=== PATIENT | male | born 1950 | race Caucasian/White ===

== ENCOUNTER 2020-12-21 10:53 | Outpatient (CLI) | payer MEDICARE, BC ==
[2020-12-21 13:00] LABS: BASOPHILS % (AUTO) 0.6 % (0.0-2.0); EOSINOPHILS % (AUTO) 2.1 % (0.0-6.0); HEMATOCRIT 44 % (39-51); HEMOGLOBIN 14.7 g/dL (13.5-17.5); LYMPHOCYTES # (AUTO) 0.8 /CMM (0.8-4.8); LYMPHOCYTES % (AUTO) 20.1 % (20.0-44.0); MEAN CORPUSCULAR HGB CONC 33 g/dl (31.0-36.0); MEAN CORPUSCULAR VOLUME 87 fL (80-96); MONOCYTES # (AUTO) 0.3 /CMM (0.1-1.30); MONOCYTES % (AUTO) 6.5 % (2.0-12.0); NEUTROPHILS # (AUTO) 2.8 /CMM (1.8-8.9); NEUTROPHILS % (AUTO) 70.7 % (43.0-81.0); PLATELET COUNT (AUTO) 125 /CMM (150-450); RED BLOOD CELL COUNT(AUTO) 5.07 MIL/uL (4.5-6.0); WHITE BLOOD COUNT (AUTO) 3.9 K/uL (4.3-11.0)
[2020-12-21 13:15] LABS: URINE TOTAL PROTEIN 17.9 mg/dL (0-11.9)
[2020-12-21 13:18] LABS: ALANINE AMINOTRANSFERASE 39 U/L (12-78); ALBUMIN 3.8 g/dL (3.4-5.0); ALKALINE PHOSPHATASE 74 U/L (46-116); ASPARTATE AMINOTRANSFERASE 33 U/L (15-37); BILIRUBIN,TOTAL 0.8 mg/dL (0.2-1.0); CALCIUM, SERUM 8.8 mg/dL (8.5-10.1); CARBON DIOXIDE 28 mmol/L (21-32); CHLORIDE 103 mmol/L (98-107); CREATININE 1.2 mg/dL (0.6-1.3); GLUCOSE 91 mg/dL (74-106); MAGNESIUM 2.3 mg/dL (1.8-2.4); PHOSPHORUS 3.4 mg/dL (2.5-4.9); SODIUM SERUM 140 mmol/L (136-145); UREA NITROGEN, BLOOD 27 mg/dL (7-18)
[2020-12-21 13:25] LABS: BILIRUBIN,URINE NEGATIVE (NEGATIVE); COLOR,URINE YELLOW (YELLOW); LEUKOCYTE ESTERASE ,URINE NEGATIVE (NEGATIVE); NITRITE, URINE NEGATIVE (NEGATIVE); PH,URINE 7.5 (5.0-8.0); PROTEIN,URINE NEGATIVE (NEGATIVE); UGLUCOSE NEGATIVE (NEGATIVE)
[2020-12-21 13:28] LABS: CHOLESTEROL 137 mg/dL (<200); FREE T4 (FREE THYROXINE) 0.98 ng/dL (0.76-1.46); HDL CHOLESTEROL 36 mg/dL (40-60); LDL 68 mg/dL (0-99); THYROID STIMULATING HORMONE 6.029 uIU/mL (0.358-3.74); TRIGLYCERIDES 204 mg/dL (30-150)
[2020-12-21 13:32] LABS: C-REACTIVE PROTEIN < 0.2 mg/dL (0.0-0.9)
== END 2020-12-21 23:59 | disposition home or self-care (01) ==
LOC: MSC 10:53
PROVIDERS: ATTEND Internal Medicine
DX: M53.3 Sacrococcygeal disorders, not elsewhere classified (principal); M25.522 Pain in left elbow; G57.90 Unspecified mononeuropathy of unspecified lower limb; E80.7 Disorder of bilirubin metabolism, unspecified; N40.0 Benign prostatic hyperplasia without lower urinary tract symptoms; E03.9 Hypothyroidism, unspecified; R03.0 Elevated blood-pressure reading, without diagnosis of hypertension; E55.9 Vitamin D deficiency, unspecified; N52.9 Male erectile dysfunction, unspecified; I78.0 Hereditary hemorrhagic telangiectasia; Z79.899 Other long term (current) drug therapy
CPT/HCPCS: 36415; 80053; 80061; 81003; 82043; 82570; 82607; 82746; 83036; 83735; 84100; 84155; 84439; 84443; 85025; 85652; 86140; G0463

== ENCOUNTER 2020-12-23 11:30 | Outpatient (CLI) | payer MEDICARE, BC | END 2020-12-23 23:59 | disposition home or self-care (01) | LOC: MSC 11:30 | PROVIDERS: ATTEND Internal Medicine | DX: G57.90 Unspecified mononeuropathy of unspecified lower limb (principal); M53.3 Sacrococcygeal disorders, not elsewhere classified; M25.522 Pain in left elbow; D69.6 Thrombocytopenia, unspecified; D72.819 Decreased white blood cell count, unspecified; E03.9 Hypothyroidism, unspecified; N40.0 Benign prostatic hyperplasia without lower urinary tract symptoms; R03.0 Elevated blood-pressure reading, without diagnosis of hypertension; E29.1 Testicular hypofunction; E55.9 Vitamin D deficiency, unspecified; N52.9 Male erectile dysfunction, unspecified; I78.0 Hereditary hemorrhagic telangiectasia; Z79.899 Other long term (current) drug therapy ==

== ENCOUNTER 2020-12-31 10:00 | Outpatient (CLI) | payer MEDICARE, BC | END 2020-12-31 23:59 | disposition home or self-care (01) | LOC: WOU 10:00 | PROVIDERS: ATTEND Podiatrist Foot & Ankle Surgery | DX: G90.09 Other idiopathic peripheral autonomic neuropathy (principal); B35.3 Tinea pedis; B35.1 Tinea unguium; R60.0 Localized edema | CPT/HCPCS: G0463 ==

== ENCOUNTER → 2021-01-07 | Outpatient (CLI) | payer MEDICARE, BC | END | disposition home or self-care (01) | LOC: MSC 14:30 | PROVIDERS: ATTEND Internal Medicine | DX: M53.3 Sacrococcygeal disorders, not elsewhere classified (principal); M25.522 Pain in left elbow; G57.90 Unspecified mononeuropathy of unspecified lower limb; D72.819 Decreased white blood cell count, unspecified; N40.0 Benign prostatic hyperplasia without lower urinary tract symptoms; R03.0 Elevated blood-pressure reading, without diagnosis of hypertension; E29.1 Testicular hypofunction; E55.9 Vitamin D deficiency, unspecified; N52.9 Male erectile dysfunction, unspecified; Z79.899 Other long term (current) drug therapy ==

== ENCOUNTER 2021-05-04 15:35 | Outpatient (CLI) | payer MEDICARE, BC ==
[2021-05-04 16:00] LABS: BASOPHILS % (AUTO) 0.9 % (0.0-2.0); EOSINOPHILS % (AUTO) 1.3 % (0.0-6.0); HEMATOCRIT 41 % (39-51); LYMPHOCYTES # (AUTO) 0.8 K/uL (0.8-4.8); LYMPHOCYTES % (AUTO) 17.2 % (20.0-44.0); MEAN CORPUSCULAR HGB CONC 34 g/dl (31.0-36.0); MEAN CORPUSCULAR VOLUME 88 fL (80-96); MONOCYTES # (AUTO) 0.5 K/uL (0.1-1.30); MONOCYTES % (AUTO) 9.8 % (2.0-12.0); NEUTROPHILS # (AUTO) 3.5 K/uL (1.8-8.9); NEUTROPHILS % (AUTO) 70.8 % (43.0-81.0); PLATELET COUNT (AUTO) 136 K/uL (150-450); RED BLOOD CELL COUNT(AUTO) 4.66 MIL/uL (4.5-6.0); WHITE BLOOD COUNT (AUTO) 4.9 K/uL (4.3-11.0)
[2021-05-04 16:09] LABS: BILIRUBIN,URINE NEGATIVE (NEGATIVE); COLOR,URINE YELLOW (YELLOW); LEUKOCYTE ESTERASE ,URINE NEGATIVE (NEGATIVE); NITRITE, URINE NEGATIVE (NEGATIVE); PROTEIN,URINE NEGATIVE (NEGATIVE); UGLUCOSE NEGATIVE (NEGATIVE); UROBILINOGEN,URINE 0.2 EU/dL (0.2)
[2021-05-04 16:14] LABS: MAGNESIUM 2.2 mg/dL (1.8-2.4); PHOSPHORUS 4.1 mg/dL (2.5-4.9)
== END 2021-05-04 23:59 | disposition home or self-care (01) ==
LOC: LAB 15:35
PROVIDERS: ATTEND Internal Medicine
DX: E03.9 Hypothyroidism, unspecified (principal); Z79.899 Other long term (current) drug therapy
CPT/HCPCS: 36415; 83735-TC; 84100-TC; 85025-TC

== ENCOUNTER 2021-10-18 11:15 | Outpatient (CLI) | payer MEDICARE, BC ==
[2021-10-18] MEDS ORDERED: BACI/NEOM/POLY B OINT PKT 1 UDPKT PACKET ONE (12:16)
== END 2021-10-18 23:59 | disposition home or self-care (01) ==
LOC: WOU 11:15
PROVIDERS: ATTEND Podiatrist Foot & Ankle Surgery
DX: S91.114A Laceration without foreign body of right lesser toe(s) without damage to nail, initial encounter (principal); X58.XXXA Exposure to other specified factors, initial encounter; Y92.89 Other specified places as the place of occurrence of the external cause; G90.09 Other idiopathic peripheral autonomic neuropathy; B35.1 Tinea unguium; R60.0 Localized edema
CPT/HCPCS: 87070; 87075; 87077; 87102; G0463

== ENCOUNTER 2021-10-19 09:20 | Outpatient (CLI) | payer MEDICARE, BC ==
[2021-10-19 10:17] LABS: BASOPHILS % (AUTO) 0.5 % (0.0-2.0); EOSINOPHILS % (AUTO) 1.8 % (0.0-6.0); HEMATOCRIT 42 % (39-51); HEMOGLOBIN 14.2 g/dL (13.5-17.5); LYMPHOCYTES # (AUTO) 0.6 K/uL (0.8-4.8); LYMPHOCYTES % (AUTO) 16.5 % (20.0-44.0); MEAN CORPUSCULAR HGB CONC 34 g/dl (31.0-36.0); MEAN CORPUSCULAR VOLUME 88 fL (80-96); MONOCYTES # (AUTO) 0.4 K/uL (0.1-1.30); MONOCYTES % (AUTO) 9.6 % (2.0-12.0); NEUTROPHILS # (AUTO) 2.7 K/uL (1.8-8.9); NEUTROPHILS % (AUTO) 71.6 % (43.0-81.0); PLATELET COUNT (AUTO) 135 K/uL (150-450); RED BLOOD CELL COUNT(AUTO) 4.72 MIL/uL (4.5-6.0); WHITE BLOOD COUNT (AUTO) 3.7 K/uL (4.3-11.0)
== END 2021-10-19 23:59 | disposition home or self-care (01) ==
LOC: RAD 09:20
PROVIDERS: ATTEND Podiatrist Foot & Ankle Surgery
DX: B35.3 Tinea pedis (principal)
CPT/HCPCS: 36415; 85025-TC; 85652-TC; 86140-TC

== ENCOUNTER 2021-10-25 10:30 | Outpatient (CLI) | payer MEDICARE, BC ==
[2021-10-25] MEDS ORDERED: BACI/NEOM/POLY B OINT PKT 1 UDPKT PACKET ONE (11:39)
== END 2021-10-25 23:59 | disposition home or self-care (01) ==
LOC: WOU 10:30
PROVIDERS: ATTEND Podiatrist Foot & Ankle Surgery
DX: S91.114D Laceration without foreign body of right lesser toe(s) without damage to nail, subsequent encounter (principal); X58.XXXD Exposure to other specified factors, subsequent encounter; L03.031 Cellulitis of right toe; B95.61 Methicillin susceptible Staphylococcus aureus infection as the cause of diseases classified elsewhere; R60.0 Localized edema; B35.1 Tinea unguium; B35.3 Tinea pedis
CPT/HCPCS: G0463

== ENCOUNTER 2021-12-29 08:49 | Outpatient (CLI) | payer MEDICARE, BC | END 2021-12-29 23:59 | disposition home or self-care (01) | LOC: MSC 08:49 | PROVIDERS: ATTEND Internal Medicine | DX: Z00.00 Encounter for general adult medical examination without abnormal findings (principal); R03.0 Elevated blood-pressure reading, without diagnosis of hypertension; M53.3 Sacrococcygeal disorders, not elsewhere classified; L60.8 Other nail disorders; M25.522 Pain in left elbow; G57.90 Unspecified mononeuropathy of unspecified lower limb; D72.819 Decreased white blood cell count, unspecified; N40.0 Benign prostatic hyperplasia without lower urinary tract symptoms; E29.1 Testicular hypofunction; E03.9 Hypothyroidism, unspecified; Z79.890 Hormone replacement therapy; E55.9 Vitamin D deficiency, unspecified; I78.1 Nevus, non-neoplastic; N52.9 Male erectile dysfunction, unspecified; Z79.899 Other long term (current) drug therapy ==

== ENCOUNTER 2022-01-03 09:20 | Outpatient (CLI) | payer MEDICARE, BC ==
[2022-01-03 10:50] LABS: BASOPHILS % (AUTO) 0.6 % (0.0-2.0); EOSINOPHILS % (AUTO) 1.9 % (0.0-6.0); HEMATOCRIT 44 % (39-51); LYMPHOCYTES # (AUTO) 0.6 K/uL (0.8-4.8); LYMPHOCYTES % (AUTO) 18.8 % (20.0-44.0); MEAN CORPUSCULAR HGB CONC 34 g/dl (31.0-36.0); MEAN CORPUSCULAR VOLUME 88 fL (80-96); MONOCYTES # (AUTO) 0.3 K/uL (0.1-1.30); MONOCYTES % (AUTO) 10.1 % (2.0-12.0); NEUTROPHILS # (AUTO) 2.2 K/uL (1.8-8.9); NEUTROPHILS % (AUTO) 68.6 % (43.0-81.0); PLATELET COUNT (AUTO) 123 K/uL (150-450); WHITE BLOOD COUNT (AUTO) 3.2 K/uL (4.3-11.0)
[2022-01-03 11:03] LABS: TOTAL IRON BINDING CAPACITY 278 ug/dl (250-450)
[2022-01-03 11:17] LABS: CHOLESTEROL 147 mg/dL (<200); FERRITIN 351 ng/mL (8-388); FREE T4 (FREE THYROXINE) 1.43 ng/dL (0.76-1.46); GAMMA GLUTAMYL TRANSFERASE 31 U/L (5-85); HDL CHOLESTEROL 52 mg/dL (40-60); LDL 82 mg/dL (0-99); THYROID STIMULATING HORMONE 0.367 uIU/mL (0.358-3.74); TRIGLYCERIDES 80 mg/dL (30-150)
[2022-01-03 11:19] LABS: C-REACTIVE PROTEIN < 0.2 mg/dL (0.0-0.9)
[2022-01-03 11:24] LABS: URINE TOTAL PROTEIN 0.9 mg/dL (0-11.9)
[2022-01-03 11:29] LABS: ALANINE AMINOTRANSFERASE 37 U/L (12-78); ALBUMIN 4.1 g/dL (3.4-5.0); ALKALINE PHOSPHATASE 58 U/L (46-116); ASPARTATE AMINOTRANSFERASE 29 U/L (15-37); BILIRUBIN,TOTAL 1.3 mg/dL (0.2-1.0); CARBON DIOXIDE 30 mmol/L (21-32); CHLORIDE 102 mmol/L (98-107); CREATININE 1.1 mg/dL (0.6-1.3); GLUCOSE 92 mg/dL (74-106); MAGNESIUM 2.4 mg/dL (1.8-2.4); PHOSPHORUS 3.1 mg/dL (2.5-4.9); POTASSIUM 4.5 mmol/L (3.5-5.1); SODIUM SERUM 139 mmol/L (136-145); TOTAL PROTEIN, SERUM 7.1 g/dL (6.4-8.2); UREA NITROGEN, BLOOD 25 mg/dL (7-18)
[2022-01-03 12:12] LABS: BILIRUBIN,URINE NEGATIVE (NEGATIVE); COLOR,URINE YELLOW (YELLOW); LEUKOCYTE ESTERASE ,URINE NEGATIVE (NEGATIVE); NITRITE, URINE NEGATIVE (NEGATIVE); PROTEIN,URINE NEGATIVE (NEGATIVE); UGLUCOSE NEGATIVE (NEGATIVE); UROBILINOGEN,URINE 0.2 EU/dL (0.2)
== END 2022-01-03 23:59 | disposition home or self-care (01) ==
LOC: RAD 09:20
PROVIDERS: ATTEND Internal Medicine
DX: K76.89 Other specified diseases of liver (principal); Z00.00 Encounter for general adult medical examination without abnormal findings; M79.671 Pain in right foot
CPT/HCPCS: 36415; 73630-TC; 76705-TC; 80053-TC; 80061-TC; 82306; 82607-TC; 82728-TC; 82977-TC; 83550-TC; 83735-TC; 83970; 84100-TC; 84155-TC; 84439-TC; 84443-TC; 85025-TC; 85652-TC; 86140-TC

== ENCOUNTER 2022-01-13 14:00 | Outpatient (CLI) | payer MEDICARE, BC | END 2022-01-13 23:59 | disposition home or self-care (01) | LOC: MSC 14:00 | PROVIDERS: ATTEND Internal Medicine | DX: I10 Essential (primary) hypertension (principal); D61.818 Other pancytopenia; D69.6 Thrombocytopenia, unspecified; M53.3 Sacrococcygeal disorders, not elsewhere classified; L81.9 Disorder of pigmentation, unspecified; L60.8 Other nail disorders; M25.522 Pain in left elbow; G57.90 Unspecified mononeuropathy of unspecified lower limb; N40.0 Benign prostatic hyperplasia without lower urinary tract symptoms; E29.1 Testicular hypofunction; E03.9 Hypothyroidism, unspecified; Z79.890 Hormone replacement therapy; E55.9 Vitamin D deficiency, unspecified; I78.1 Nevus, non-neoplastic; N52.9 Male erectile dysfunction, unspecified; Z79.899 Other long term (current) drug therapy ==

== ENCOUNTER → 2022-02-22 | Outpatient (CLI) | payer MEDICARE, BC | END | disposition home or self-care (01) | LOC: MSC 14:30 | PROVIDERS: ATTEND Internal Medicine | DX: I10 Essential (primary) hypertension (principal); D61.818 Other pancytopenia; D69.6 Thrombocytopenia, unspecified; M53.3 Sacrococcygeal disorders, not elsewhere classified; L81.9 Disorder of pigmentation, unspecified; L60.8 Other nail disorders; M25.522 Pain in left elbow; G57.90 Unspecified mononeuropathy of unspecified lower limb; N40.0 Benign prostatic hyperplasia without lower urinary tract symptoms; E29.1 Testicular hypofunction; N52.9 Male erectile dysfunction, unspecified; E03.9 Hypothyroidism, unspecified; Z79.890 Hormone replacement therapy; E55.9 Vitamin D deficiency, unspecified; I78.1 Nevus, non-neoplastic; Z79.899 Other long term (current) drug therapy ==

== ENCOUNTER 2022-03-08 08:44 | Outpatient (CLI) | payer MEDICARE, BC ==
[2022-03-08 09:50] LABS: CALCIUM, SERUM 8.8 mg/dL (8.5-10.1); CARBON DIOXIDE 31 mmol/L (21-32); CHLORIDE 105 mmol/L (98-107); CREATININE 1.2 mg/dL (0.6-1.3); GLUCOSE 105 mg/dL (74-106); MAGNESIUM 2.1 mg/dL (1.8-2.4); PHOSPHORUS 3.5 mg/dL (2.5-4.9); POTASSIUM 4.6 mmol/L (3.5-5.1); SODIUM SERUM 140 mmol/L (136-145); UREA NITROGEN, BLOOD 21 mg/dL (7-18)
== END 2022-03-08 23:59 | disposition home or self-care (01) ==
LOC: LAB 08:44
PROVIDERS: ATTEND Internal Medicine
DX: N40.0 Benign prostatic hyperplasia without lower urinary tract symptoms (principal); E03.9 Hypothyroidism, unspecified; E29.1 Testicular hypofunction; R03.0 Elevated blood-pressure reading, without diagnosis of hypertension
CPT/HCPCS: 36415; 80048-TC; 83735-TC; 84100-TC

== ENCOUNTER 2022-03-28 09:45 | Outpatient (CLI) | payer MEDICARE, BC | END 2022-03-28 23:59 | disposition home or self-care (01) | LOC: MSC 09:45 | PROVIDERS: ATTEND Internal Medicine | DX: I10 Essential (primary) hypertension (principal); D61.818 Other pancytopenia; D69.6 Thrombocytopenia, unspecified; M53.3 Sacrococcygeal disorders, not elsewhere classified; L81.9 Disorder of pigmentation, unspecified; L60.8 Other nail disorders; M25.522 Pain in left elbow; G57.90 Unspecified mononeuropathy of unspecified lower limb; N40.0 Benign prostatic hyperplasia without lower urinary tract symptoms; E29.1 Testicular hypofunction; N52.9 Male erectile dysfunction, unspecified; E03.9 Hypothyroidism, unspecified; Z79.890 Hormone replacement therapy; E55.9 Vitamin D deficiency, unspecified; I78.1 Nevus, non-neoplastic ==

== ENCOUNTER 2022-07-17 15:02 | Outpatient (CLI) | payer MEDICARE, BC ==
[2022-07-17 15:55] LABS: BILIRUBIN,URINE NEGATIVE (NEGATIVE); COLOR,URINE YELLOW (YELLOW); LEUKOCYTE ESTERASE ,URINE NEGATIVE (NEGATIVE); NITRITE, URINE NEGATIVE (NEGATIVE); PH,URINE 6.5 (5.0-8.0); PROTEIN,URINE NEGATIVE (NEGATIVE); UGLUCOSE NEGATIVE (NEGATIVE); UROBILINOGEN,URINE 0.2 EU/dL (0.2)
[2022-07-17 16:00] LABS: BACTERIA,URINE Rare /HPF (None Seen); RBC,URINE TOO NUMEROUS TO COUN /HPF (0-2); SQUAMOUS EPITHELIAL CELL,UR Few /HPF (None Seen)
[2022-07-17 16:04] LABS: BASOPHILS % (AUTO) 0.5 % (0.0-2.0); EOSINOPHILS % (AUTO) 1.8 % (0.0-6.0); HEMATOCRIT 42 % (39-51); HEMOGLOBIN 14.2 g/dL (13.5-17.5); LYMPHOCYTES # (AUTO) 0.9 K/uL (0.8-4.8); LYMPHOCYTES % (AUTO) 19.3 % (20.0-44.0); MEAN CORPUSCULAR HGB CONC 34 g/dl (31.0-36.0); MEAN CORPUSCULAR VOLUME 85 fL (80-96); MONOCYTES # (AUTO) 0.6 K/uL (0.1-1.30); MONOCYTES % (AUTO) 12.5 % (2.0-12.0); NEUTROPHILS # (AUTO) 3.1 K/uL (1.8-8.9); NEUTROPHILS % (AUTO) 65.9 % (43.0-81.0); PLATELET COUNT (AUTO) 134 K/uL (150-450); RED BLOOD CELL COUNT(AUTO) 4.94 MIL/uL (4.5-6.0); WHITE BLOOD COUNT (AUTO) 4.7 K/uL (4.3-11.0)
== END 2022-07-17 23:59 | disposition home or self-care (01) ==
LOC: LAB 15:02
PROVIDERS: ATTEND Internal Medicine
DX: Z01.818 Encounter for other preprocedural examination (principal); R97.20 Elevated prostate specific antigen [PSA]
CPT/HCPCS: 36415; 80048-TC; 81001; 85025-TC; 85730-TC; 87086-TC

== ENCOUNTER → 2022-07-20 | Outpatient (CLI) | payer MEDICARE, BC | END | disposition home or self-care (01) | LOC: MSC 10:36 | PROVIDERS: ATTEND Internal Medicine | DX: Z01.818 Encounter for other preprocedural examination (principal); N40.0 Benign prostatic hyperplasia without lower urinary tract symptoms; R05.3 Chronic cough; Z80.1 Family history of malignant neoplasm of trachea, bronchus and lung; I78.1 Nevus, non-neoplastic; R22.42 Localized swelling, mass and lump, left lower limb; I10 Essential (primary) hypertension; D69.6 Thrombocytopenia, unspecified; M53.3 Sacrococcygeal disorders, not elsewhere classified; L81.9 Disorder of pigmentation, unspecified; M25.522 Pain in left elbow; G57.90 Unspecified mononeuropathy of unspecified lower limb; E29.1 Testicular hypofunction; N52.9 Male erectile dysfunction, unspecified; E03.9 Hypothyroidism, unspecified; Z79.890 Hormone replacement therapy; E55.9 Vitamin D deficiency, unspecified | CPT/HCPCS: 71045; G0463 ==

== ENCOUNTER 2022-07-25 10:30 | Outpatient (CLI) | payer MEDICARE, BC | END 2022-07-25 23:59 | disposition home or self-care (01) | LOC: MSC 10:30 | PROVIDERS: ATTEND Internal Medicine | DX: R05.3 Chronic cough (principal); Z80.1 Family history of malignant neoplasm of trachea, bronchus and lung; G57.90 Unspecified mononeuropathy of unspecified lower limb; R22.42 Localized swelling, mass and lump, left lower limb; N40.0 Benign prostatic hyperplasia without lower urinary tract symptoms; I78.1 Nevus, non-neoplastic; I10 Essential (primary) hypertension; D69.6 Thrombocytopenia, unspecified; M53.3 Sacrococcygeal disorders, not elsewhere classified; L81.9 Disorder of pigmentation, unspecified; M25.522 Pain in left elbow; E29.1 Testicular hypofunction; N52.9 Male erectile dysfunction, unspecified; E03.9 Hypothyroidism, unspecified; Z79.890 Hormone replacement therapy; E55.9 Vitamin D deficiency, unspecified ==

== ENCOUNTER 2022-08-08 09:00 | Outpatient (CLI) | payer MEDICARE, BC | END 2022-08-08 23:59 | disposition home or self-care (01) | LOC: MSC 09:00 | PROVIDERS: ATTEND Internal Medicine | DX: R22.42 Localized swelling, mass and lump, left lower limb (principal); M53.3 Sacrococcygeal disorders, not elsewhere classified; G57.90 Unspecified mononeuropathy of unspecified lower limb; R05.9 Cough, unspecified; R05.3 Chronic cough; Z80.1 Family history of malignant neoplasm of trachea, bronchus and lung; I78.1 Nevus, non-neoplastic; I10 Essential (primary) hypertension; D69.6 Thrombocytopenia, unspecified; M25.522 Pain in left elbow; N40.0 Benign prostatic hyperplasia without lower urinary tract symptoms; E29.1 Testicular hypofunction; N52.9 Male erectile dysfunction, unspecified; E03.9 Hypothyroidism, unspecified; Z79.890 Hormone replacement therapy; E55.9 Vitamin D deficiency, unspecified ==

== ENCOUNTER 2022-08-14 11:10 | Outpatient (CLI) | payer MEDICARE, BC | END 2022-08-14 23:59 | disposition home or self-care (01) | LOC: CT 11:10 | PROVIDERS: ATTEND Internal Medicine | DX: R05.9 Cough, unspecified (principal); M51.34 Other intervertebral disc degeneration, thoracic region; I25.10 Atherosclerotic heart disease of native coronary artery without angina pectoris; M47.814 Spondylosis without myelopathy or radiculopathy, thoracic region; M48.04 Spinal stenosis, thoracic region | CPT/HCPCS: 71250-TC ==

== ENCOUNTER → 2022-08-22 | Outpatient (CLI) | payer MEDICARE, BC | END | disposition home or self-care (01) | LOC: MSC 11:45 | PROVIDERS: ATTEND Internal Medicine | DX: R05.3 Chronic cough (principal); Z80.1 Family history of malignant neoplasm of trachea, bronchus and lung; R22.42 Localized swelling, mass and lump, left lower limb; G57.90 Unspecified mononeuropathy of unspecified lower limb; L98.9 Disorder of the skin and subcutaneous tissue, unspecified; I10 Essential (primary) hypertension; D69.6 Thrombocytopenia, unspecified; M53.3 Sacrococcygeal disorders, not elsewhere classified; M25.522 Pain in left elbow; N40.0 Benign prostatic hyperplasia without lower urinary tract symptoms; E29.1 Testicular hypofunction; N52.9 Male erectile dysfunction, unspecified; E03.9 Hypothyroidism, unspecified; Z79.890 Hormone replacement therapy; E55.9 Vitamin D deficiency, unspecified ==

== ENCOUNTER → 2022-09-21 | Outpatient (CLI) | payer MEDICARE, BC | END | disposition home or self-care (01) | LOC: MSC 15:30 | PROVIDERS: ATTEND Internal Medicine | DX: I10 Essential (primary) hypertension (principal); Z79.899 Other long term (current) drug therapy; R05.3 Chronic cough; Z80.1 Family history of malignant neoplasm of trachea, bronchus and lung; R22.42 Localized swelling, mass and lump, left lower limb; L98.9 Disorder of the skin and subcutaneous tissue, unspecified; G57.90 Unspecified mononeuropathy of unspecified lower limb; D69.6 Thrombocytopenia, unspecified; M53.3 Sacrococcygeal disorders, not elsewhere classified; M25.522 Pain in left elbow; N40.0 Benign prostatic hyperplasia without lower urinary tract symptoms; E29.1 Testicular hypofunction; N52.9 Male erectile dysfunction, unspecified; E03.9 Hypothyroidism, unspecified; Z79.890 Hormone replacement therapy; E55.9 Vitamin D deficiency, unspecified ==

== ENCOUNTER 2022-10-12 14:00 | Outpatient (CLI) | payer MEDICARE, BC | END 2022-10-12 23:59 | disposition home or self-care (01) | LOC: MSC 14:00 | PROVIDERS: ATTEND Internal Medicine | DX: R60.0 Localized edema (principal); I87.2 Venous insufficiency (chronic) (peripheral); G57.90 Unspecified mononeuropathy of unspecified lower limb; I10 Essential (primary) hypertension; R05.3 Chronic cough; Z80.1 Family history of malignant neoplasm of trachea, bronchus and lung; L98.9 Disorder of the skin and subcutaneous tissue, unspecified; I78.1 Nevus, non-neoplastic; D69.6 Thrombocytopenia, unspecified; M53.3 Sacrococcygeal disorders, not elsewhere classified; M25.522 Pain in left elbow; N40.0 Benign prostatic hyperplasia without lower urinary tract symptoms; E29.1 Testicular hypofunction; N52.9 Male erectile dysfunction, unspecified; E03.9 Hypothyroidism, unspecified; Z79.890 Hormone replacement therapy; E55.9 Vitamin D deficiency, unspecified; Z79.899 Other long term (current) drug therapy ==

== ENCOUNTER 2022-10-18 10:38 | Outpatient (CLI) | payer MEDICARE, BC ==
[2022-10-18 11:26] LABS: CREATININE 1.2 mg/dL (0.6-1.3); MAGNESIUM 2.5 mg/dL (1.8-2.4); PHOSPHORUS 3.6 mg/dL (2.5-4.9); POTASSIUM 4.6 mmol/L (3.5-5.1)
== END 2022-10-18 23:59 | disposition home or self-care (01) ==
LOC: LAB 10:38
PROVIDERS: ATTEND Internal Medicine
DX: R03.0 Elevated blood-pressure reading, without diagnosis of hypertension (principal); N40.0 Benign prostatic hyperplasia without lower urinary tract symptoms; G47.9 Sleep disorder, unspecified; E03.9 Hypothyroidism, unspecified
CPT/HCPCS: 36415; 80048-TC; 83735-TC; 84100-TC

== ENCOUNTER 2022-10-20 15:00 | Outpatient (CLI) | payer MEDICARE, BC | END 2022-10-20 23:59 | disposition home or self-care (01) | LOC: MSC 15:00 | PROVIDERS: ATTEND Internal Medicine | DX: I10 Essential (primary) hypertension (principal); R05.3 Chronic cough; Z80.1 Family history of malignant neoplasm of trachea, bronchus and lung; R60.0 Localized edema; G57.90 Unspecified mononeuropathy of unspecified lower limb; I87.2 Venous insufficiency (chronic) (peripheral); L98.9 Disorder of the skin and subcutaneous tissue, unspecified; I78.1 Nevus, non-neoplastic; D69.6 Thrombocytopenia, unspecified; M53.3 Sacrococcygeal disorders, not elsewhere classified; M25.522 Pain in left elbow; N40.0 Benign prostatic hyperplasia without lower urinary tract symptoms; E29.1 Testicular hypofunction; N52.9 Male erectile dysfunction, unspecified; E03.9 Hypothyroidism, unspecified; Z79.890 Hormone replacement therapy; E55.9 Vitamin D deficiency, unspecified; Z79.899 Other long term (current) drug therapy ==

== ENCOUNTER → 2023-03-20 | Outpatient (CLI) | payer MEDICARE, BC | END | disposition home or self-care (01) | LOC: MSC 14:00 | PROVIDERS: ATTEND Internal Medicine | DX: I10 Essential (primary) hypertension (principal); R05.3 Chronic cough; R60.0 Localized edema; G57.90 Unspecified mononeuropathy of unspecified lower limb; D69.6 Thrombocytopenia, unspecified; M53.3 Sacrococcygeal disorders, not elsewhere classified; N40.0 Benign prostatic hyperplasia without lower urinary tract symptoms; E29.1 Testicular hypofunction; N52.9 Male erectile dysfunction, unspecified; E03.9 Hypothyroidism, unspecified; Z79.890 Hormone replacement therapy; E55.9 Vitamin D deficiency, unspecified; Z79.899 Other long term (current) drug therapy ==